=== PATIENT | female | born 1975 | race Caucasian/White ===

== ENCOUNTER 2018-04-29 14:53 | Emergency (ER) | payer SELFPAY, OTHER ==
[2018-04-29] MEDS: IBUPROFEN 600 MG TAB PO (15:27)
== END 2018-04-29 16:14 | disposition home or self-care (01) ==
LOC: FTE 14:53
DX: M25.561 Pain in right knee (principal); M25.531 Pain in right wrist
CPT/HCPCS: 73562; 99283-25